=== PATIENT | male | born 1985 | race Caucasian/White ===

== ENCOUNTER 2016-04-20 17:16 | Observation (INO) | payer OTHER ==
[2016-04-20] MEDS ORDERED: Sodium Chloride 0.9% 1000 ML 1,000 ML IV STA ×2 (17:26→19:14)
--- NOTE | 2016-04-20 17:29 | ERPHSYRPT ---
- History of Present Illness Source: patient Exam Limitations: clinical condition Patient Subjective Stated Complaint: "i statrted feeling bad earlier today. i went to try to take a shower and became light headed, i vission got funny and i almost passed out. i am taking a chemo drug still for my chronic lukemia" Triage Nursing Assessment: aox3, breating unlabored,s kin flushed, diaphoretic, warm, steady gait, speaking in complete setences Physician History: Patient with nasal congestion sinus pressure and cough sore throat over past couple of days and today when he walked into the shower he felt like he would pass out and did not actual fall or lose consciousness. Came here for further evaluation treatment. Patient has history of chronic leukemia on ongoing medication is on disability for such. He thinks he's had a low-grade fever and occasional chills. No wheezing shortness of breath Or chest pain. Prior Episodes: single episode today Timing/Duration: today Precipitating Factors: lightheadedness, other (as above) Context: standing Loss of Consciousness: no loss of consciousness, other (as noted) Char[place]er of event(s): almost passed out Allergies/Adverse Reactions: No Known Drug Allergies Allergy (Verified 04/20/16 17:24) Home Medications: Dasatinib [Sprycel] 100 mg PO DAILY 04/20/16 [History] Hx Tetanus, Diphtheria Vaccination/Date Given: Yes Hx Influenza Vaccination/Date Given: No Hx Pneumococcal Vaccination/Date Given: No - Past Medical History Pertinent Past Medical History: No Neurological History: No Pertinent History Cardiac History: No Pertinent History Respiratory History: Asthma Endocrine Medical History: No Pertinent History Musculoskeletal History: Arthritis Other Medical History: Chronic Myeloid Leukemia - Past Surgical History Past Surgical History: Yes Other Surgical History: CYST REMOVAL - Social History Smoking Status: Never smoker Exposure to second hand smoke: No Drug Use: marijuana Patient Lives Alone: No - Review of Systems Constitutional: Fever, Chills, Fatigue, Lethargy, Malaise, Weakness Eyes: No Symptoms Ears, Nose, & Throat: No Symptoms Respiratory: Cough, No Dyspnea, No Dyspnea on Exertion (YOUSSEF), No Wheezing Cardiac: Other, No Chest Pain, No Edema, No Palpitations, No Syncope ( presyncope as noted) Abdominal/Gastrointestinal: No Symptoms, Abdominal Pain, Nausea Genitourinary Symptoms: No Symptoms, Dysuria Musculoskeletal: No Symptoms, No Arthralgias, No Back Pain, No Neck Pain, No Deformity, No Fall Skin: No Symptoms Neurological: No Symptoms Psychological: No Symptoms Endocrine: No Symptoms Hematologic/Lymphatic: No Symptoms Immunological/Allergic: No Symptoms All Other Systems: Reviewed and Negative Physical Exam - Nursing Vital Signs Nursing Vital Signs: Initial Vital Signs Temperature 99.7 F Temperature Source Oral Pulse Rate 92 Respiratory Rate 16 Blood Pressure [Right Arm] 126/60 Pain Intensity 3 - [place] Coma Scale Best Eye Response ([place]): (2) open to pain Best Verbal Response ([place]): (5) oriented Best Motor Response ([place]): (6) obeys commands [place] Total: 13 - Physical Exam General Appearance: mild distress, obese (super morbid) Eye Exam: bilateral eye: normal inspection, PERRL, EOMI Ears, Nose, Throat Exam: pharyngeal erythema, other (Nasal mucosal edema with palpable Tenderness) Neck Exam: normal inspection, non-tender, supple, full range of motion, No meningismus, No Brudzinski Respiratory: normal breath sounds, lungs clear, airway intact, No chest tenderness Cardiovascular: regular rate/rhythm, normal heart sounds, normal peripheral pulses, capillary refill <2 sec Gastrointestinal: soft, normal bowel sounds, other (Massively obese difficult exam), No tenderness, No distention, No mass, No guarding, No rebound, No hernia Rectal Exam: deferred Back Exam: normal inspection, normal range of motion, No CVA tenderness Extremity Exam: normal inspection, normal range of motion Peripheral Pulses: carotid (R): 2+, carotid (L): 2+ Mental Status: alert, oriented x 3, 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 Exam: normal hearing, normal speech, PERRL Coordination/Gait: normal finger to nose Motor/Sensory: no motor deficit, no sensory deficit, no pronator drift, negative Babinski's sign, No weak motor strength RUE, No weak motor strength LUE , No weak motor strength RLE, No weak motor strength LLE Skin Exam: normal color, warm, dry SpO2 Interpretation: normal SpO2: 97 Oxygen Delivery: Room Air - Course Nursing assessment & vital signs reviewed: Yes EKG Interpreted by Me: RATE (103), Sinus Tach, Left [place] Deviation, NORMAL INTERVALS, NORMAL QRS, NORMAL ST-T, Other (no acute changes) - Radiology Exams Chest X-ray Interpretation: Interpreted by me, No Infiltrates, Other (borderline cardiomegaly) Ordered Tests: Active Orders 24 hr Category Date Time Status Up With Assistance ROUTINE Activity 04/20/16 19:50 Active Accucheck STAT Care 04/20/16 17:26 Active Admission/Status Order ROUTINE Care 04/20/16 19:50 Active Chief Juvenile Probation Officer STAT Care 04/20/16 17:26 Active Code Status Order ROUTINE Care 04/20/16 19:50 Active EKG-ER Only STAT Care 04/20/16 17:26 Active Fall Protocol ROUTINE Care 04/20/16 19:52 Active IV Care Q6H Care 04/20/16 19:50 Active IV Insertion STAT Care 04/20/16 17:26 Active Miscellaneous Nursing Order ROUTINE Care 04/20/16 19:50 Active Neuro Checks Q4H Care 04/20/16 19:50 Active Pulse Oximetry (ED) STAT Care 04/20/16 17:26 Active Rectal Temperature STAT Care 04/20/16 17:26 Active Telemetry ROUTINE Care 04/20/16 19:50 Active Vital Signs Q4H Care 04/20/16 19:50 Active Regular Diet Diet 04/20/16 Breakfast Active CHEST 1 VIEW (PORTABLE) Stat Exams 04/20/16 17:27 Taken BLOOD CULTURE Stat Lab 04/20/16 17:57 Received CBC W DIFF AM.LAB Lab 04/21/16 04:00 Ordered CBC W DIFF Stat Lab 04/20/16 17:40 Completed CMP AM.LAB Lab 04/21/16 04:00 Ordered CMP Stat Lab 04/20/16 17:40 Completed CULTURE, THROAT Stat Lab 04/20/16 17:55 Received Lactic Acid Urgent Lab 04/20/16 17:50 Completed STREP SCREEN-BETA A Stat Lab 04/20/16 17:55 Completed UA Stat Lab 04/20/16 18:15 Received Pulse Oximetry CONTINUOUS RT 04/20/16 19:52 Active Medication Summary Generic Name Dose Route Start Last Admin Trade Name Freq PRN Reason Stop Dose Admin Acetaminophen 650 mg 04/20/16 19:50 Tylenol 325 Mg PO 05/20/16 19:49 Q4H PRN PRN PAIN AND/OR FEVER Sodium Chloride 1,000 mls @ 150 mls/hr 04/20/16 20:00 Sodium Chloride 0.9% 1000 Ml IV 05/20/16 19:59 .Q6H40M [facility] Ondansetron HCl 4 mg 04/20/16 19:50 Zofran 4 Mg/2 Ml Vial IV 05/20/16 19:49 Q6H PRN PRN NAUSEA/VOMITING Discontinued Medications Generic Name Dose Route Start Last Admin Trade Name Freq PRN Reason Stop Dose Admin Acetaminophen 1,000 mg 04/20/16 18:06 04/20/16 18:12 Tylenol Extra Strength 500 Mg PO 04/20/16 18:07 1,000 mg STAT STA Administration Acetaminophen Confirm 04/20/16 18:11 Tylenol Extra Strength 500 Mg Administered 04/20/16 18:12 Dose 1,000 mg .ROUTE .STK-MED ONE Sodium Chloride 1,000 mls @ 999 mls/hr 04/20/16 17:26 04/20/16 17:56 Sodium Chloride 0.9% 1000 Ml IV 04/20/16 18:26 999 mls/hr .Q1H1M STA Administration Sodium Chloride Confirm 04/20/16 17:43 Sodium Chloride 0.9% 1000 Ml Administered 04/20/16 17:44 Dose 1,000 mls @ ud .ROUTE .STK-MED ONE Sodium Chloride 1,000 mls @ 999 mls/hr 04/20/16 19:14 04/20/16 19:37 Sodium Chloride 0.9% 1000 Ml IV 04/20/16 20:14 999 mls/hr .Q1H1M STA Administration Sodium Chloride Confirm 04/20/16 19:17 Sodium Chloride 0.9% 1000 Ml Administered 04/20/16 19:18 Dose 1,000 mls @ ud .ROUTE .STK-MED ONE Sodium Chloride Confirm 04/20/16 19:33 Sodium Chloride 0.9% 1000 Ml Administered 04/20/16 19:34 Dose 1,000 mls @ ud .ROUTE .STK-MED ONE Lab/Rad Data: Laboratory Result Diagrams 04/20/16 17:40 04/20/16 17:40 Laboratory Results 04/20/16 04/20/16 04/20/16 Range/Units 17:55 17:55 17:50 WBC (4.0-10.5) K/mm3 RBC (4.1-5.6) M/mm3 Hgb (12.5-18.0) gm/dl Hct (42-50) % MCV (78-100) fl MCH (26-32) pg MCHC (32-36) g/dl RDW (11.5-14.0) % Plt Count (150-450) K/mm3 MPV (6-9.5) fl Gran % (36.0-66.0) % Lymphocytes % (24.0-44.0) % Monocytes % (0.0-12.0) % Eosinophils % (0.00-5.0) % Basophils % (0.0-0.4) % Basophils # (0-0.4) Sodium (136-145) mEq/L Potassium (3.5-5.1) mEq/L Chloride (98-107) mEq/L Carbon Dioxide (21-32) mEq/L Anion Gap (5-15) MEQ/L BUN (9-20) mg/dL Creatinine (0.55-1.30) mg/dl Estimated GFR ML/MIN Glucose (70-110) MG/DL Lactic Acid 1.3 (0.4-2.0) Calcium (8.5-10.1) mg/dL Total Bilirubin (0.2-1.0) mg/dL AST (15-37) U/L ALT (12-78) U/L Alkaline Phosphatase (46-116) U/L Serum Total Protein (6.4-8.2) gm/dL Albumin (3.4-5.0) g/dL Streptococcus Screen NEGATIVE (Negative) Resp Infection Panel NEGATIVE (Negative) 04/20/16 04/20/16 Range/Units 17:40 17:40 WBC 10.5 (4.0-10.5) K/mm3 RBC 5.34 (4.1-5.6) M/mm3 Hgb 14.7 (12.5-18.0) gm/dl Hct 42.6 (42-50) % MCV 79.8 (78-100) fl MCH 27.5 (26-32) pg MCHC 34.5 (32-36) g/dl RDW 14.7 H (11.5-14.0) % Plt Count 195 (150-450) K/mm3 MPV 9.7 H (6-9.5) fl Gran % 77.4 H (36.0-66.0) % Lymphocytes % 10.6 L (24.0-44.0) % Monocytes % 10.9 (0.0-12.0) % Eosinophils % 0.8 (0.00-5.0) % Basophils % 0.3 (0.0-0.4) % Basophils # 0.03 (0-0.4) Sodium 140 (136-145) mEq/L Potassium 4.2 (3.5-5.1) mEq/L Chloride 103 (98-107) mEq/L Carbon Dioxide 24.7 (21-32) mEq/L Anion Gap 16.5 H (5-15) MEQ/L BUN 10 (9-20) mg/dL Creatinine 0.87 (0.55-1.30) mg/dl Estimated GFR > 60 ML/MIN Glucose 99 (70-110) MG/DL Lactic Acid (0.4-2.0) Calcium 9.0 (8.5-10.1) mg/dL Total Bilirubin 0.9 (0.2-1.0) mg/dL AST 20 (15-37) U/L ALT 23 (12-78) U/L Alkaline Phosphatase 79 (46-116) U/L Serum Total Protein 7.7 (6.4-8.2) gm/dL Albumin 4.0 (3.4-5.0) g/dL Streptococcus Screen (Negative) Resp Infection Panel (Negative) - Progress Progress: unchanged Progress Note: 04/20/16 19:46Noted rectal temp 101.5. Treated with Tylenol with good results. Testing for strep and respiratory diseases are negative. Chest x-ray was negative. CBC did show a left shift but no other significant changes. Patient still felt generalized malaise and mild headache and weak in general so case was discussed with Dr. Rod and patient will be admitted for observation given the fact he has chronic leukemia. This is in agreement with the patient and mom. Discussed with : Marcel Will see patient in: hospital (observation) Counseled pt/family regarding: lab results, diagnosis, need for follow-up, rad results - Departure Time of Disposition: 19:47 Departure Disposition: Observation Clinical Impression: Pre-syncope, Acute viral syndrome, Morbid obesity with BMI of 50.0-59.9, adult URI (upper respiratory infection) Qualifiers: URI type: unspecified viral URI Qualified Code(s): J06.9 - Acute upper respiratory infection, unspecified Chronic leukemia Qualifiers: Leukemia Active/Remission status: in remission Qualified Code(s): C95.11 - Chronic leukemia of unspecified cell type, in remission Fever Qualifiers: Fever type: unspecified Qualified Code(s): R50.9 - Fever, unspecified Condition: Stable Critical Care Time: No
[2016-04-20] MEDS ORDERED: Sodium Chloride 0.9% 1000 ML 1,000 ML ONE (17:43)
[2016-04-20 17:58] LABS: BASOPHIL % 0.3 % (0.0-0.4); Eosinophil % 0.8 % (0.00-5.0); Granulocytes % 77.4 % (36.0-66.0); Lymphocytes % 10.6 % (24.0-44.0); Mean Cell Volume 79.8 fl (78-100); Mean Corpuscular Hemoglobin 27.5 pg (26-32); Mean Platelet Volume 9.7 fl (6-9.5); Monocytes % 10.9 % (0.0-12.0); Platelet Count 195 K/mm3 (150-450); Red Blood Count 5.34 M/mm3 (4.1-5.6); Red Cell Distribution Width 14.7 % (11.5-14.0); White Blood Count 10.5 K/mm3 (4.0-10.5)
[2016-04-20] MEDS ORDERED: TYLENOL EXTRA STRENGTH 500 MG PO STA (18:06)
[2016-04-20] MEDS ORDERED: TYLENOL EXTRA STRENGTH 500 MG ONE (18:11)
[2016-04-20 18:28] LABS: ALKALINE PHOSPHATASE 79 U/L (46-116); ANION GAP 16.5 MEQ/L (5-15); BILIRUBIN,TOTAL 0.9 mg/dL (0.2-1.0); BLOOD UREA NITROGEN 10 mg/dL (9-20); CHLORIDE 103 mEq/L (98-107); Carbon Dioxide 24.7 mEq/L (21-32); Glucose 99 MG/DL (70-110); Potassium 4.2 mEq/L (3.5-5.1); SGOT/AST 20 U/L (15-37); SGPT/ALT 23 U/L (12-78); SODIUM 140 mEq/L (136-145); Total Protein 7.7 gm/dL (6.4-8.2)
[2016-04-20] MEDS ORDERED: Sodium Chloride 0.9% 1000 ML 0 ML ONE ×2 (19:17→19:33)
[2016-04-20] MEDS ORDERED: Zofran 4 MG/2 ML VIAL IV PRN ×2 (19:50→22:14)
[2016-04-20] MEDS ORDERED: TYLENOL 325 MG PO PRN ×2 (19:50→22:13)
[2016-04-20] MEDS ORDERED: Sodium Chloride 0.9% 1000 ML 1,000 ML IV SCH (20:00)
[2016-04-20 21:30] LABS: COMPLETE URINE MICROSCOPIC? YES; Collection Type CLEAN CATCH; Ph 7.5 (5-6)
[2016-04-20 21:31] LABS: Bacteria RARE /HPF (NEGATIVE); Epithelial Cells FEW /HPF (FEW); Mucus MODERATE /HPF (NEGATIVE); WBC 0-2 /HPF (0-5)
[2016-04-20] MEDS: Sodium Chloride 0.9% 1000 ML 1,000 ML IV SCH (22:56)
[2016-04-21 03:40] VITALS: O2SAT 97
[2016-04-21 05:15] LABS: BASOPHIL % 0.5 % (0.0-0.4); Eosinophil % 2.8 % (0.00-5.0); Granulocytes % 53.1 % (36.0-66.0); Lymphocytes % 30.6 % (24.0-44.0); Mean Cell Volume 81.3 fl (78-100); Mean Corpuscular Hemoglobin 26.8 pg (26-32); Mean Platelet Volume 9.7 fl (6-9.5); Platelet Count 223 K/mm3 (150-450); Red Blood Count 4.66 M/mm3 (4.1-5.6); Red Cell Distribution Width 14.8 % (11.5-14.0); White Blood Count 5.8 K/mm3 (4.0-10.5)
[2016-04-21] MEDS: Sodium Chloride 0.9% 1000 ML 1,000 ML IV SCH (05:50)
[2016-04-21 08:08] VITALS: BP 123/58; PULSE 83
--- NOTE | 2016-04-21 08:31 | PCM.SSS ---
History of Present Illness - Chief Complaint Chief Complaint: Presyncope History of Present Illness: is a 30 year old male who presented to the ER complaining of cough, congestion, fever and lightheadedness. He felt weak at home and thought he might pass out. In the ER his workup was essentially negative, he was hydrated overnight and observed for presyncope. He has been out of bed to the restroom in his room this morning with no dizziness or lightheadedness, he has not had fever overnight. - Review of Systems Constitutional: Fever, Chills, Weakness Respiratory: Cough Cardiac: No Chest Pain, No Edema, No Syncope Abdominal/Gastrointestinal: No Abdominal Pain, No Nausea, No Vomiting, No Diarrhea Genitourinary Symptoms: No Dysuria Skin: No Rash All Other Systems: Reviewed and Negative Medications & Allergies Home Medications: Home Medication List Dasatinib [Sprycel] 100 mg PO DAILY 04/20/16 [History Confirmed 04/20/16] Allergies/Adverse Reactions: Allergies Allergy/AdvReac Type Severity Reaction Status Date / Time No Known Drug Allergies Allergy Verified 04/20/16 17:24 - Past Medical History Past Medical History: No Neurological History: No Pertinent History ENT History: No Pertinent History Cardiac History: No Pertinent History Respiratory History: Asthma Endocrine Medical History: No Pertinent History Musculoskelatal History: Arthritis GI Medical History: No Pertinent History History: No Pertinent History Pyscho-Social History: No Pertinent History Male Reproductive Disorders: No Pertinent History Comment: Chronic Myeloid Leukemia - Past Surgical History Past Surgical History: Yes Neuro Surgical History: No Pertinent History Cardiac History: No Pertinent History Respiratory Surgery: No Pertinent History GI Surgical History: No Pertinent History Genitourinary Surgical Hx: No Pertinent History Musculskeletal Surgical Hx: No Pertinent History Male Surgical History: No Pertinent History Other Surgical History: CYST REMOVAL. Penial shunt - Social History Smoking Status: Never smoker Exposure to second hand smoke: No Alcohol: Weekly Drug Use: none - Physical Exam Vital Signs: Vital Signs - 24 hr Temp Pulse Resp BP BP Pulse Ox 04/21/16 08:00 97.7 F 83 20 123/58 97 04/21/16 03:46 20 04/21/16 03:39 97.7 F 79 20 123/57 97 04/21/16 00:00 20 04/20/16 23:31 97.8 F 87 20 125/57 96 04/20/16 23:14 98.1 F 103 H 21 122/55 98 04/20/16 20:47 97 04/20/16 19:14 99.7 F 92 H 16 126/60 98 04/20/16 18:13 101 H 18 128/60 97 04/20/16 18:12 101.5 F 04/20/16 18:04 101.5 F 04/20/16 17:31 95 04/20/16 17:18 100.1 F 113 H 20 151/64 97 General Appearance: no apparent distress, alert, obese (morbid) Respiratory Exam: normal breath sounds, lungs clear, No respiratory distress Cardiovascular Exam: regular rate/rhythm, normal heart sounds, normal peripheral pulses Gastrointestinal/Abdomen Exam: soft, normal bowel sounds, No tenderness, No mass Extremity Exam: normal inspection, normal range of motion, pelvis stable Skin Exam: normal color, warm, dry, No rash Results - Labs Lab/Micro Results: Lab Results-Last 24 Hours 04/21/16 04/21/16 Range/Units 04:48 04:48 WBC 5.8 (4.0-10.5) K/mm3 RBC 4.66 (4.1-5.6) M/mm3 Hgb 12.5 (12.5-18.0) gm/dl Hct 37.9 L (42-50) % MCV 81.3 (78-100) fl MCH 26.8 (26-32) pg MCHC 33.0 (32-36) g/dl RDW 14.8 H (11.5-14.0) % Plt Count 223 (150-450) K/mm3 MPV 9.7 H (6-9.5) fl Gran % 53.1 (36.0-66.0) % Lymphocytes % 30.6 (24.0-44.0) % Monocytes % 13.0 H (0.0-12.0) % Eosinophils % 2.8 (0.00-5.0) % Basophils % 0.5 (0.0-0.4) % Basophils # 0.03 (0-0.4) Glucose (70-110) MG/DL Assessment/Plan (1) Pre-syncope Current Visit: Yes Status: Acute Assessment & Plan: symptoms resolved, likely related to fever and viral illness. nothing worrisome on monitor overnight (2) URI (upper respiratory infection) Current Visit: Yes Status: Acute Qualifiers: URI type: unspecified viral URI Qualified Code(s): J06.9 - Acute upper respiratory infection, unspecified; B97.89 - Other viral agents as the cause of diseases classified elsewhere Code(s): J06.9 - ACUTE UPPER RESPIRATORY INFECTION, UNSPECIFIED (3) Chronic leukemia Current Visit: Yes Status: Acute Qualifiers: Leukemia Active/Remission status: in remission Qualified Code(s): C95.11 - Chronic leukemia of unspecified cell type, in remission Code(s): C95.10 - CHRONIC LEUKEMIA OF UNSP CELL TYPE NOT ACHIEVE REMISSION (4) Morbid obesity with BMI of 50.0-59.9, adult Current Visit: Yes Status: Acute Code(s): E66.01 - MORBID (SEVERE) OBESITY DUE TO EXCESS CALORIES; Z68.43 - BODY MASS INDEX (BMI) 50-59.9 , ADULT Hospital Summary - Vitals & Intake/Output Vital Signs: Vital Signs Temperature 97.7 F 04/21/16 08:00 Pulse Rate 83 04/21/16 08:00 Respiratory Rate 20 04/21/16 08:00 Blood Pressure 123/58 04/21/16 08:00 O2 Sat by Pulse Oximetry 97 04/21/16 08:00 Intake & Output: Intake & Output 04/18/16 04/19/16 04/20/16 04/21/16 11:59 11:59 11:59 11:59 Intake Total 1852 Balance 1852 Weight 175.71 kg - Lab Result Diagrams: 04/21/16 04:48 04/20/16 17:40 Lab Results-Last 24 Hrs: Lab Results-Last 24 Hours 04/21/16 04/21/16 Range/Units 04:48 04:48 WBC 5.8 (4.0-10.5) K/mm3 RBC 4.66 (4.1-5.6) M/mm3 Hgb 12.5 (12.5-18.0) gm/dl Hct 37.9 L (42-50) % MCV 81.3 (78-100) fl MCH 26.8 (26-32) pg MCHC 33.0 (32-36) g/dl RDW 14.8 H (11.5-14.0) % Plt Count 223 (150-450) K/mm3 MPV 9.7 H (6-9.5) fl Gran % 53.1 (36.0-66.0) % Lymphocytes % 30.6 (24.0-44.0) % Monocytes % 13.0 H (0.0-12.0) % Eosinophils % 2.8 (0.00-5.0) % Basophils % 0.5 (0.0-0.4) % Basophils # 0.03 (0-0.4) Glucose (70-110) MG/DL - Discharge Disposition: Home, Self-Care Condition: Stable Prescriptions: Continue Dasatinib [Sprycel] 100 mg PO DAILY Additional Instructions: push clear liquids, rest and take tylenol for fever. followup in the office in 1 week for recheck. return for new symmptoms or change of condition. Follow up with: TON RENTERIA MD [Primary Care Provider] -
--- NOTE | 2016-04-21 08:32 | XRAY ---
Indication: Fever. Comparison: None Portable apical lordotic chest clear. Heart and mediastinal structures within normal limits for AP portable projection. Bony thorax intact. Impression: Nonacute chest.
[2016-04-21] MEDS ORDERED: DASATINIB 100 MG PO SCH (10:00)
[2016-04-21] MEDS ORDERED: MEDICATION INTERVENTION MC SCH (10:00)
== END 2016-04-21 10:20 | disposition home or self-care (01) ==
LOC: ED 17:16 → MED SURG 20:22
PROVIDERS: ADMIT Family Medicine; ATTEND Family Medicine
DX: R55 Syncope and collapse (principal); J06.9 Acute upper respiratory infection, unspecified; B97.89 Other viral agents as the cause of diseases classified elsewhere; C95.11 Chronic leukemia of unspecified cell type, in remission; C95.10 Chronic leukemia of unspecified cell type not having achieved remission; E66.01 Morbid (severe) obesity due to excess calories; Z68.43 Body mass index [BMI] 50.0-59.9, adult
CPT/HCPCS: 36000; 36415; 71010; 80048; 80053; 81000; 82962; 83605; 85025; 87040; 87070; 87430; 87631; 93005; 93041; 93268; 96360; 96361; 99284; 99285; G0378

== ENCOUNTER 2021-09-15 13:09 | Emergency (ER) | payer OTHER ==
--- NOTE | 2021-09-15 13:24 | ERPHSYRPT ---
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 Patient states he was walking his dog in the hot weather. He then acutely experienced chest pain. Mild shortness of breath. No syncope. Patient walked into his house. EMS was called. Patient was treated for possible heat exhaustion/heat stroke. Patient was diaphoretic. No nausea or vomiting. No diarrhea. No rash. No fever. Glucose is 91. Chest pain is substernal. Patient denies history of the same. Symptoms are constant. Symptoms are moderate in intensity. No specific worsening improving factors. Patient is otherwise healthy. He voices no other complaints or concerns at this time. Timing/Duration: today Severity: moderate Modifying Factors: Improves With: nothing Associated Symptoms: shortness of breath Allergies/Adverse Reactions: No Known Drug Allergies Allergy (Verified 09/15/21 13:11) Home Medications: Dasatinib [Sprycel] 100 mg PO DAILY 04/20/16 [History] Hx Tetanus, Diphtheria Vaccination/Date Given: Yes Hx Influenza Vaccination/Date Given: No Hx Pneumococcal Vaccination/Date Given: No - Review of Systems Constitutional: No Symptoms, No Fever, No Chills Eyes: No Symptoms Ears, Nose, & Throat: No Symptoms Respiratory: No Symptoms, No Cough, No Dyspnea Cardiac: No Symptoms, No Chest Pain, No Edema, No Syncope Abdominal/Gastrointestinal: No Symptoms, No Abdominal Pain, No Nausea, No Vomiting, No Diarrhea Genitourinary Symptoms: No Symptoms, No Dysuria Musculoskeletal: No Symptoms, No Back Pain, No Neck Pain Skin: No Symptoms, No Rash Neurological: No Symptoms, No Dizziness, No Focal Weakness, No Sensory Changes Psychological: No Symptoms Endocrine: No Symptoms Hematologic/Lymphatic: No Symptoms Immunological/Allergic: No Symptoms All Other Systems: Reviewed and Negative - Past Medical History Pertinent Past Medical History: No Neurological History: No Pertinent History ENT History: No Pertinent History Cardiac History: No Pertinent History Respiratory History: Asthma Endocrine Medical History: No Pertinent History Musculoskeletal History: Arthritis GI Medical History: No Pertinent History History: No Pertinent History Psycho-Social History: No Pertinent History Male Reproductive Disorders: No Pertinent History Other Medical History: Chronic Myeloid Leukemia - Past Surgical History Past Surgical History: Yes Neuro Surgical History: No Pertinent History Cardiac: No Pertinent History Respiratory: No Pertinent History Gastrointestinal: No Pertinent History Genitourinary: No Pertinent History Musculoskeletal: No Pertinent History Male Surgical History: No Pertinent History Other Surgical History: CYST REMOVAL. Penial shunt - Social History Smoking Status: Never smoker Exposure to second hand smoke: No Drug Use: none Patient Lives Alone: No - Nursing Vital Signs Nursing Vital Signs: Initial Vital Signs Temperature 97.8 F 09/15/21 13:12 Pulse Rate 97 H 09/15/21 13:12 Respiratory Rate 18 09/15/21 13:12 Blood Pressure 164/85 09/15/21 13:12 O2 Sat by Pulse Oximetry 98 09/15/21 13:12 Pain Scale Pain Intensity 3 - Physical Exam General Appearance: alert, other (Mildly diaphoretic. No acute distress otherwise) Eye Exam: PERRL/EOMI, eyes nml inspection Ears, Nose, Throat Exam: normal ENT inspection, TMs normal, pharynx normal, moist mucous membranes Neck Exam: normal inspection, non-tender, supple, full range of motion Respiratory Exam: normal breath sounds, lungs clear, airway intact, No respiratory distress Cardiovascular Exam: regular rate/rhythm, normal heart sounds, normal peripheral pulses Gastrointestinal/Abdomen Exam: soft, normal bowel sounds, No tenderness, No mass Back Exam: normal inspection, normal range of motion, No CVA tenderness, No vertebral tenderness Extremity Exam: normal inspection, normal range of motion, pelvis stable Neurologic Exam: alert, oriented x 3, cooperative, normal mood/affect, nml cerebellar function, nml station & gait, sensation nml, No motor deficits Skin Exam: normal color, warm, dry, No rash Lymphatic Exam: No adenopathy SpO2 Interpretation: normal SpO2: 98 O2 Delivery: Room Air - Course Nursing assessment & vital signs reviewed: Yes EKG Interpreted by Me: RATE (88), Sinus Rhythm, NORMAL AXIS, NORMAL INTERVALS - Radiology Exams Chest X-ray Interpretation: Interpreted by me (Cardiomegaly. Otherwise negative chest x-ray) Ordered Tests: Active Orders 24 hr Category Date Time Status Director Of Religious Activities STAT Care 09/15/21 13:16 Active EKG-ER Only STAT Care 09/15/21 13:14 Active IV Insertion STAT Care 09/15/21 13:14 Active Pulse Oximetry (ED) STAT Care 09/15/21 13:14 Active CHEST 1 VIEW (PORTABLE) Stat Exams 09/15/21 14:34 Completed BLOOD CULTURE Stat Lab 09/15/21 13:30 Received CBC W DIFF Stat Lab 09/15/21 13:30 Completed CMP Stat Lab 09/15/21 13:30 Completed D-DIMER QUANTITATIVE Stat Lab 09/15/21 13:32 Completed ETHYL ALCOHOL Stat Lab 09/15/21 13:30 Completed Lactic Acid Stat Lab 09/15/21 13:35 Completed TROPONIN Q3H Lab 09/15/21 13:30 Completed TROPONIN Q3H Lab 09/15/21 16:15 Completed TROPONIN Q3H Lab 09/15/21 19:15 Ordered TROPONIN Q3H Lab 09/15/21 22:15 Ordered TROPONIN Q3H Lab 09/16/21 01:15 Ordered UA W/RFX CULTURE Stat Lab 09/15/21 15:13 Completed Urine Triage Profile Stat Lab 09/15/21 14:35 Completed Lab/Rad Data: Laboratory Result Diagrams 09/15/21 13:30 09/15/21 13:30 Laboratory Results 09/15/21 09/15/21 09/15/21 Range/Units 16:15 15:13 14:35 WBC (4.0-10.5) x10^3/uL RBC (4.1-5.6) x10^6/uL Hgb (12.5-18.0) g/dL Hct (42-50) % MCV (78-100) fL MCH (26-32) pg MCHC (32-36) g/dL RDW (11.5-14.0) % Plt Count (150-450) x10^3/uL MPV (7.5-11.0) fL Gran % (36.0-66.0) % Immature Gran % (Auto) (0.00-0.4) % Nucleat RBC Rel Count (0.00-0.1) % Eos # (Auto) (0-0.5) x10^3/uL Immature Gran # (Auto) (0.00-0.03) x10^3u/L Absolute Lymphs (auto) (1.0-4.6) x10^3/uL Absolute Monos (auto) (0.0-1.3) x10^3/uL Absolute Nucleated RBC (0.00-0.01) x10^3u/L Lymphocytes % (24.0-44.0) % Monocytes % (0.0-12.0) % Eosinophils % (0.00-5.0) % Basophils % (0.0-0.4) % Absolute Granulocytes (1.4-6.9) x10^3/uL Basophils # (0-0.4) x10^3/uL D-Dimer (0.0-0.50) mg/L Sodium (137-145) mmol/L Potassium (3.5-5.1) mmol/L Chloride (98-107) mmol/L Carbon Dioxide (22-30) mmol/L Anion Gap (5-15) MEQ/L BUN (9-20) mg/dL Creatinine (0.66-1.25) mg/dL Estimated GFR ML/MIN Glucose (74-106) mg/dL Lactic Acid (0.4-2.0) Calcium (8.4-10.2) mg/dL Total Bilirubin (0.2-1.3) mg/dL AST (17-59) U/L ALT (0-50) U/L Alkaline Phosphatase (38-126) U/L Troponin I < 0.012 (0.000-0.034) ng/mL Serum Total Protein (6.3-8.2) g/dL Albumin (3.5-5.0) g/dL Urinalys Dipstick Clnc MAIN LAB Urine Color YELLOW (YELLOW) Urine Appearance CLEAR (CLEAR) Urine pH 7.0 (5-6) Ur Specific [place] 1.015 (1.005-1.025) POC Urine Protein Conf NEGATIVE (Negative) Urine Ketones SMALL-15 (NEGATIVE) Urine Nitrite NEGATIVE (NEGATIVE) Urine Bilirubin NEGATIVE (NEGATIVE) Urine Urobilinogen 1 (0-1) mg/dL Urine Leukocytes NEGATIVE (NEGATIVE) Urine WBC (Auto) NONE (0-5) /HPF Urine RBC (Auto) NONE (0-2) /HPF U Epithel Cells (Auto) RARE (FEW) /HPF Urine Bacteria (Auto) NONE (NEGATIVE) /HPF Urine RBC NEGATIVE (0-5) Randall/ul Ur Culture Indicated? NO Urine Glucose NEGATIVE (NEGATIVE) mg/dL Urine Opiates Level NEGATIVE (NEGATIVE) Ur Methadone NEGATIVE (NEGATIVE) Urine Barbiturates NEGATIVE (NEGATIVE) Ur Phencyclidine (PCP) NEGATIVE (NEGATIVE) Urine Amphetamine NEGATIVE (NEGATIVE) U Benzodiazepine Level NEGATIVE (NEGATIVE) Urine Cocaine NEGATIVE (NEGATIVE) Urine Marijuana (THC) NEGATIVE (NEGATIVE) Ethyl Alcohol (0-10) mg/dL 09/15/21 09/15/21 09/15/21 Range/Units 13:35 13:32 13:30 WBC (4.0-10.5) x10^3/uL RBC (4.1-5.6) x10^6/uL Hgb (12.5-18.0) g/dL Hct (42-50) % MCV (78-100) fL MCH (26-32) pg MCHC (32-36) g/dL RDW (11.5-14.0) % Plt Count (150-450) x10^3/uL MPV (7.5-11.0) fL Gran % (36.0-66.0) % Immature Gran % (Auto) (0.00-0.4) % Nucleat RBC Rel Count (0.00-0.1) % Eos # (Auto) (0-0.5) x10^3/uL Immature Gran # (Auto) (0.00-0.03) x10^3u/L Absolute Lymphs (auto) (1.0-4.6) x10^3/uL Absolute Monos (auto) (0.0-1.3) x10^3/uL Absolute Nucleated RBC (0.00-0.01) x10^3u/L Lymphocytes % (24.0-44.0) % Monocytes % (0.0-12.0) % Eosinophils % (0.00-5.0) % Basophils % (0.0-0.4) % Absolute Granulocytes (1.4-6.9) x10^3/uL Basophils # (0-0.4) x10^3/uL D-Dimer 0.27 (0.0-0.50) mg/L Sodium (137-145) mmol/L Potassium (3.5-5.1) mmol/L Chloride (98-107) mmol/L Carbon Dioxide (22-30) mmol/L Anion Gap (5-15) MEQ/L BUN (9-20) mg/dL Creatinine (0.66-1.25) mg/dL Estimated GFR ML/MIN Glucose (74-106) mg/dL Lactic Acid 0.8 (0.4-2.0) Calcium (8.4-10.2) mg/dL Total Bilirubin (0.2-1.3) mg/dL AST (17-59) U/L ALT (0-50) U/L Alkaline Phosphatase (38-126) U/L Troponin I < 0.012 (0.000-0.034) ng/mL Serum Total Protein (6.3-8.2) g/dL Albumin (3.5-5.0) g/dL Urinalys Dipstick Clnc Urine Color (YELLOW) Urine Appearance (CLEAR) Urine pH (5-6) Ur Specific [place] (1.005-1.025) POC Urine Protein Conf (Negative) Urine Ketones (NEGATIVE) Urine Nitrite (NEGATIVE) Urine Bilirubin (NEGATIVE) Urine Urobilinogen (0-1) mg/dL Urine Leukocytes (NEGATIVE) Urine WBC (Auto) (0-5) /HPF Urine RBC (Auto) (0-2) /HPF U Epithel Cells (Auto) (FEW) /HPF Urine Bacteria (Auto) (NEGATIVE) /HPF Urine RBC (0-5) Randall/ul Ur Culture Indicated? Urine Glucose (NEGATIVE) mg/dL Urine Opiates Level (NEGATIVE) Ur Methadone (NEGATIVE) Urine Barbiturates (NEGATIVE) Ur Phencyclidine (PCP) (NEGATIVE) Urine Amphetamine (NEGATIVE) U Benzodiazepine Level (NEGATIVE) Urine Cocaine (NEGATIVE) Urine Marijuana (THC) (NEGATIVE) Ethyl Alcohol (0-10) mg/dL 09/15/21 09/15/21 Range/Units 13:30 13:30 WBC 6.9 (4.0-10.5) x10^3/uL RBC 4.83 (4.1-5.6) x10^6/uL Hgb 12.6 (12.5-18.0) g/dL Hct 38.3 L (42-50) % MCV 79.3 (78-100) fL MCH 26.1 (26-32) pg MCHC 32.9 (32-36) g/dL RDW 15.2 H (11.5-14.0) % Plt Count 287 (150-450) x10^3/uL MPV 9.5 (7.5-11.0) fL Gran % 65.3 (36.0-66.0) % Immature Gran % (Auto) 0.3 (0.00-0.4) % Nucleat RBC Rel Count 0.0 (0.00-0.1) % Eos # (Auto) 0.14 (0-0.5) x10^3/uL Immature Gran # (Auto) 0.02 (0.00-0.03) x10^3u/L Absolute Lymphs (auto) 1.52 (1.0-4.6) x10^3/uL Absolute Monos (auto) 0.68 (0.0-1.3) x10^3/uL Absolute Nucleated RBC 0.00 (0.00-0.01) x10^3u/L Lymphocytes % 22.0 L (24.0-44.0) % Monocytes % 9.8 (0.0-12.0) % Eosinophils % 2.0 (0.00-5.0) % Basophils % 0.6 (0.0-0.4) % Absolute Granulocytes 4.51 (1.4-6.9) x10^3/uL Basophils # 0.04 (0-0.4) x10^3/uL D-Dimer (0.0-0.50) mg/L Sodium 138 (137-145) mmol/L Potassium 3.9 (3.5-5.1) mmol/L Chloride 103 (98-107) mmol/L Carbon Dioxide 26 (22-30) mmol/L Anion Gap 13.5 (5-15) MEQ/L BUN 10 (9-20) mg/dL Creatinine 0.65 L (0.66-1.25) mg/dL Estimated GFR > 60.0 ML/MIN Glucose 105 (74-106) mg/dL Lactic Acid (0.4-2.0) Calcium 9.5 (8.4-10.2) mg/dL Total Bilirubin 1.20 (0.2-1.3) mg/dL AST 39 (17-59) U/L ALT 28 (0-50) U/L Alkaline Phosphatase 82 (38-126) U/L Troponin I (0.000-0.034) ng/mL Serum Total Protein 7.1 (6.3-8.2) g/dL Albumin 3.9 (3.5-5.0) g/dL Urinalys Dipstick Clnc Urine Color (YELLOW) Urine Appearance (CLEAR) Urine pH (5-6) Ur Specific [place] (1.005-1.025) POC Urine Protein Conf (Negative) Urine Ketones (NEGATIVE) Urine Nitrite (NEGATIVE) Urine Bilirubin (NEGATIVE) Urine Urobilinogen (0-1) mg/dL Urine Leukocytes (NEGATIVE) Urine WBC (Auto) (0-5) /HPF Urine RBC (Auto) (0-2) /HPF U Epithel Cells (Auto) (FEW) /HPF Urine Bacteria (Auto) (NEGATIVE) /HPF Urine RBC (0-5) Randall/ul Ur Culture Indicated? Urine Glucose (NEGATIVE) mg/dL Urine Opiates Level (NEGATIVE) Ur Methadone (NEGATIVE) Urine Barbiturates (NEGATIVE) Ur Phencyclidine (PCP) (NEGATIVE) Urine Amphetamine (NEGATIVE) U Benzodiazepine Level (NEGATIVE) Urine Cocaine (NEGATIVE) Urine Marijuana (THC) (NEGATIVE) Ethyl Alcohol < 10 (0-10) mg/dL - Progress Progress: improved Progress Note: 09/15/21 17:33 Patient reassessed. Chest pain resolved. D-dimer negative. Troponin negative x2. EKG normal sinus rhythm. Chest x-ray clear. Case discussed with Dr. Renteria. Dr. Renteria agrees with disposition. He agrees the patient should be discharged with outpatient follow-up. Plan of care discussed with patient. He agrees to follow-up within 48 hours for evaluation. Portions of this note were created with voice recognition technology. There may be grammatical, spelling, punctuation or sound alike errors Will see patient in: hospital (observation) Counseled pt/family regarding: lab results, diagnosis, rad results - Departure Departure Disposition: Home Clinical Impression: Chest pain, Cardiomegaly Condition: Stable Critical Care Time: No Referrals: TON RENTERIA MD [Primary Care Provider] - Follow up/PCP as directed Instructions: Angina (DC) Additional Instructions: Discharge/Care Plan TASIANAIMA MARTIN was seen on 09/15/21 in the Emergency Room. The patient was counseled regarding Diagnosis,Lab results, Imaging studies, need for follow up and when to return to the Emergency Room. Prescriptions given: Discharge Note I have spoken with the patient and/or caregivers. I have explained the patient's condition, diagnosis and treatment plan based on the information available to me at this time. I have answered the patient's and/or caregiver's questions and addressed any concerns. The patient and/or caregivers have as good understanding of the patient's diagnosis, condition and treatment plan as can be expected at this point. The vital signs have been stable. The patient's condition is stable and appropriate for discharge from the emergency department. The patient will pursue further outpatient evaluation with the primary care physician or other designated or consulting physician as outlined in the discharge instructions. The patient and/or caregivers are agreeable to this plan of care and follow-up instructions have been explained in detail. The patient and/or caregivers have received these instruction. The patient/and or caregivers are aware that any significant change in condition or worsening of symptoms should prompt an immediate return to this or the closest emergency department or call 911.
[2021-09-15 13:31] VITALS: O2SAT 98
[2021-09-15 13:46] LABS: Absolute Neutrophil Ct (ANC) 4.51 x10^3/uL (1.4-6.9); Basophil (Absolute #) 0.04 x10^3/uL (0-0.4); Eosinophil (Absolute #) 0.14 x10^3/uL (0-0.5); Hematocrit 38.3 % (42-50); Hemoglobin 12.6 g/dL (12.5-18.0); Lymphocyte (Absolute #) 1.52 x10^3/uL (1.0-4.6); Mean Cell Volume 79.3 fL (78-100); Mean Corpuscular Hemoglobin 26.1 pg (26-32); Mean Corpuscular Hgb Concent. 32.9 g/dL (32-36); Mean Platelet Volume 9.5 fL (7.5-11.0); Monocyte (Absolute #) 0.68 x10^3/uL (0.0-1.3); Monocytes % 9.8 % (0.0-12.0); Neutrophil % 65.3 % (36.0-66.0); Platelet Count 287 x10^3/uL (150-450); Red Blood Count 4.83 x10^6/uL (4.1-5.6); Red Cell Distribution Width 15.2 % (11.5-14.0); White Blood Count 6.9 x10^3/uL (4.0-10.5)
[2021-09-15 14:02] LABS: ALBUMIN 3.9 g/dL (3.5-5.0); ALKALINE PHOSPHATASE 82 U/L (38-126); ANION GAP 13.5 MEQ/L (5-15); BLOOD UREA NITROGEN 10 mg/dL (9-20); CHLORIDE 103 mmol/L (98-107); Calcium 9.5 mg/dL (8.4-10.2); Carbon Dioxide 26 mmol/L (22-30); Creatinine 1 0.65 mg/dL (0.66-1.25); EST GLOMERULAR FILTRATION RATE > 60.0 ML/MIN; ETHYL ALCOHOL < 10 mg/dL (0-10); Glucose 105 mg/dL (74-106); Potassium 3.9 mmol/L (3.5-5.1); SGOT/AST 39 U/L (17-59); SGPT/ALT 28 U/L (0-50); SODIUM 138 mmol/L (137-145); Total Protein 7.1 g/dL (6.3-8.2)
[2021-09-15 14:50] LABS: Epithelial Cells RARE /HPF (FEW)
[2021-09-15 15:01] LABS: Amphetamine,Urine NEGATIVE (NEGATIVE); Barbiturate,Urine NEGATIVE (NEGATIVE); Benzodiazepine,Urine NEGATIVE (NEGATIVE); Cocaine,Urine NEGATIVE (NEGATIVE); Methadone,Urine NEGATIVE (NEGATIVE); Opiate,Urine NEGATIVE (NEGATIVE); PCP,Urine NEGATIVE (NEGATIVE); THC,Urine NEGATIVE (NEGATIVE)
--- NOTE | 2021-09-15 15:07 | XRAY ---
Indication: Lateral pain following ankle injury 5 days ago. Comparison: April,. Portable apical lordotic chest remains clear. Heart is now enlarged. Bony thorax intact. Impression: Cardiomegaly. No acute abnormalities.
[2021-09-15 15:19] LABS: Appearance CLEAR (CLEAR); Glucose NEGATIVE (NEGATIVE)
[2021-09-15 15:20] LABS: Bilirubin NEGATIVE (NEGATIVE); Dipstick done @ ? MAIN LAB; Ketones SMALL-15 (NEGATIVE); Nitrite NEGATIVE (NEGATIVE); Protein,Urine Dip NEGATIVE (Negative); RBC NEGATIVE Ery/ul (0-5); Specific Gravity 1.015 (1.005-1.025); Urine Cultured Indicated? NO; Urobilinogen 1 mg/dL (0-1)
[2021-09-15 17:49] VITALS: BP 141/82; PULSE 78
== END 2021-09-15 17:49 | disposition home or self-care (01) ==
LOC: ED 13:09
DX: I51.7 Cardiomegaly (principal); R07.9 Chest pain, unspecified; C92.10 Chronic myeloid leukemia, BCR/ABL-positive, not having achieved remission; R06.02 Shortness of breath; R61 Generalized hyperhidrosis; Z79.899 Other long term (current) drug therapy
CPT/HCPCS: 36000; 36415; 71045; 80053; 80307; 81015; 83605; 84484; 85025; 85379; 87040; 93005; 93041; 94760; 99284; G0480